=== PATIENT | male | born 1955 ===

== ENCOUNTER 2022-11-01 06:01 | Inpatient (IN) ==
[2022-10-29 12:25] LABS: Basophils % 0.1 % (0.0-0.8); Eosinophils # 0.1 10*3/uL (0.0-0.87); Eosinophils % 0.7 % (0.00-10.9); Hematocrit 48.6 VOL% (42.0-52.0); Hemoglobin 16.6 GM/DL (14.0-18.0); Immature Granulocytes % 0.5 %; Immature Granulocytes Absolute 0.04 #; Lymphocytes # 0.5 10*3/uL (1.4-4.0); Lymphocytes % 6.1 % (21.2-54.2); Mean Corpuscular HGB Conc 34.2 GM/DL (32-36); Mean Corpuscular Volume 97.6 FL (87-102); Mean Platelet Volume 10.7 FL (9.6-12.0); Monocytes # 0.3 10*3/uL (0.11-0.8); Monocytes % 3.5 % (1.7-12.7); Neutrophils % 89.1 % (38.7-73.9); Platelet Count 157 T/CUMM (130-400); Red Blood Count 4.98 MC/CUMM (3.8-5.5); White Blood Count 8.7 T/CUMM (4-12)
[2022-10-29 12:56] LABS: Albumin 3.9 G/DL (3.4-5.0); Bilirubin,Total 0.7 MG/DL (0.20-1.00); Calcium 9.7 MG/DL (8.5-10.1); Osmolality,Calculated 274.1 MOS/KG (273-304); Potassium 4.8 MMOL/L (3.5-5.1); Total Protein 7.5 G/DL (6.4-8.2)
[~2022-11-01 06:01] MED LIST: ceFAZolin 1,000 MG VIAL ONE
[2022-11-01] MEDS ORDERED: HEPARIN/NACL 0.9% 2 UNITS/ML 1,000 UNIT/500 ML BAG IV ONE (06:35)
[2022-11-01] MEDS ORDERED: LIDOCAINE 2% 5 ML VIAL ONE ×2 (06:36→10:43)
[2022-11-01] MEDS ORDERED: FAMOTIDINE 20 MG TABLET PO ONE (06:37)
[2022-11-01] MEDS ORDERED: DIAZEPAM 5 MG TABLET PO ONE (06:37)
[2022-11-01] MEDS ORDERED: LIDOCAINE 2% TOP JELLY 5 ML TUBE TOP ONE (06:57)
[2022-11-01] MEDS ORDERED: LIDOCAINE 1%/EPI INJ 20 ML VIAL ONE (06:59)
[2022-11-01] MEDS ORDERED: PHENYLEPHRINE 1 MG/10 ML SYRINGE IV ONE (06:59)
[2022-11-01] MEDS ORDERED: HEPARIN/NACL 0.9% 2 UNITS/ML 6,000 UNIT/3,000 ML BAG IV ONE (07:23)
[2022-11-01] MEDS ORDERED: SUGAMMADEX 200 MG/2 ML VIAL IV ONE (10:11)
[2022-11-01] MEDS ORDERED: ONDANSETRON 4 MG/2 ML VIAL IV PRN (10:21)
[2022-11-01] MEDS ORDERED: HYDROmorphone 1 MG/1 ML SYRINGE IV PRN (10:21)
[2022-11-01] MEDS ORDERED: GLUCAGON 1 MG VIAL IM PRN (10:27)
[2022-11-01] MEDS ORDERED: propofoL 200 MG/20 ML VIAL IV ONE (10:43)
[2022-11-01] MEDS ORDERED: fentaNYL 100 MCG/2 ML VIAL ONE (10:44)
[2022-11-01] MEDS ORDERED: MIDAZOLAM 2 MG/2 ML VIAL ONE (10:44)
[2022-11-01] MEDS ORDERED: SEVOFLURANE 1 UNIT/15 MINUTE INH ONE (10:44)
[2022-11-01] MEDS ORDERED: ROCURONIUM 50 MG/5 ML VIAL IV ONE (10:44)
[2022-11-01] MEDS ORDERED: PHENYLEPHRINE DRIP 20 MG/250 ML PREMIX IV ONE (10:44)
[2022-11-01] MEDS ORDERED: ONDANSETRON 4 MG/2 ML VIAL ONE (10:44)
[2022-11-01] MEDS ORDERED: ePHEDrine 50 MG/ML VIAL ONE (10:45)
[2022-11-01] MEDS ORDERED: DEXTROSE 50% 25 GM/50 ML SYRINGE IV PRN (10:52)
[2022-11-01] MEDS: LACTATED RINGERS 1,000 ML IV SCH ×2 (11:56→18:24)
[2022-11-01] MEDS: INSULIN REGULAR 100 UNIT/ML SUBCUT SCH ×3 (11:57→21:20)
[2022-11-01] MEDS: ROSUVASTATIN 20 MG TABLET PO SCH (21:17)
[2022-11-02] MEDS: LACTATED RINGERS 1,000 ML IV SCH (02:26)
[2022-11-02 05:34] LABS: Basophils % 0.3 % (0.0-0.8); Eosinophils # 0.2 10*3/uL (0.0-0.87); Eosinophils % 1.9 % (0.00-10.9); Hematocrit 34.5 VOL% (42.0-52.0); Hemoglobin 12.1 GM/DL (14.0-18.0); Immature Granulocytes % 0.3 %; Immature Granulocytes Absolute 0.03 #; Lymphocytes # 1.4 10*3/uL (1.4-4.0); Lymphocytes % 16.6 % (21.2-54.2); Mean Corpuscular HGB Conc 35.1 GM/DL (32-36); Mean Corpuscular Volume 95.6 FL (87-102); Mean Platelet Volume 10.5 FL (9.6-12.0); Monocytes # 0.5 10*3/uL (0.11-0.8); Monocytes % 6.2 % (1.7-12.7); Neutrophils % 74.7 % (38.7-73.9); Platelet Count 96 T/CUMM (130-400); Red Blood Count 3.61 MC/CUMM (3.8-5.5); Red Cell Distribution Width 11.9 % (9.3-17.3); White Blood Count 8.6 T/CUMM (4-12)
[2022-11-02 05:48] LABS: Calcium 8.5 MG/DL (8.5-10.1); Osmolality,Calculated 271.1 MOS/KG (273-304); Potassium 4.1 MMOL/L (3.5-5.1)
[2022-11-02 06:03] LABS: Platelet Estimate Decreased
[2022-11-02] MEDS: INSULIN REGULAR 100 UNIT/ML SUBCUT SCH ×4 (08:02→21:45)
[2022-11-02] MEDS ORDERED: ACETAMINOPHEN 325 MG TABLET PO ONE (08:49)
[2022-11-02] MEDS: DAPAGLIFLOZIN 10 MG TABLET PO SCH (08:53)
[2022-11-02] MEDS: METOPROLOL SUCCINATE XL 25 MG TABLET PO SCH (08:53)
[2022-11-02] MEDS: buPROPion XL 150 MG TABLET PO SCH (08:53)
[2022-11-02] MEDS: ASPIRIN EC 81 MG TABLET PO SCH (08:53)
[2022-11-02] MEDS ORDERED: FUROSEMIDE 20 MG/2 ML VIAL IV ONE (09:15)
[2022-11-02 13:17] LABS: Bacteria,Urine Occasional /HPF (Few); Bilirubin,Urine Negative (Negative); Blood, Urine Large mg/dL (Negative); Glucose,Urine (UA) >1000 mg/dL (Negative); Ketones,Urine Negative (Negative); Mucus,Urine Occasional /LPF (Occasional); Nitrite,Urine Negative (Negative); Protein,Urine 30 mg/dL (Negative); RBC,Urine 408 /HPF (0-4); Urine Appearance Slightly Hazy (Clear); Urine Color Yellow (Yellow); Urine Specific Gravity 1.015 (1.001-1.035); Urine Urobilinogen 0.2 eU/dL (<2.0); Urine pH 5.5 (4.5-8.0)
[2022-11-02] MEDS: ACETAMINOPHEN 325 MG TABLET PO PRN (16:29)
[2022-11-02] MEDS ORDERED: TICAGRELOR 90 MG TABLET PO SCH (21:00)
[2022-11-02] MEDS: CIPROFLOXACIN 500 MG TABLET PO SCH (21:15)
[2022-11-02] MEDS: ROSUVASTATIN 20 MG TABLET PO SCH (21:15)
[2022-11-03 05:35] LABS: Basophils % 0.2 % (0.0-0.8); Eosinophils % 0.1 % (0.00-10.9); Hematocrit 37.1 VOL% (42.0-52.0); Immature Granulocytes % 0.8 %; Immature Granulocytes Absolute 0.13 #; Lymphocytes # 1.4 10*3/uL (1.4-4.0); Lymphocytes % 8.6 % (21.2-54.2); Mean Corpuscular Volume 96.1 FL (87-102); Mean Platelet Volume 11.3 FL (9.6-12.0); Monocytes # 0.9 10*3/uL (0.11-0.8); Monocytes % 5.3 % (1.7-12.7); Platelet Count 75 T/CUMM (130-400); Red Blood Count 3.86 MC/CUMM (3.8-5.5); Red Cell Distribution Width 12.1 % (9.3-17.3); White Blood Count 16.4 T/CUMM (4-12)
[2022-11-03 05:45] LABS: Calcium 9.2 MG/DL (8.5-10.1); Osmolality,Calculated 271.1 MOS/KG (273-304); Potassium 4.1 MMOL/L (3.5-5.1)
[2022-11-03 06:59] LABS: Platelet Estimate Decreased
[2022-11-03] MEDS: INSULIN REGULAR 100 UNIT/ML SUBCUT SCH ×3 (07:06→17:20)
[2022-11-03] MEDS: ACETAMINOPHEN 325 MG TABLET PO PRN (07:25)
[2022-11-03] MEDS ORDERED: CLOPIDOGREL 75 MG TABLET PO SCH (09:00)
[2022-11-03] MEDS: CIPROFLOXACIN 500 MG TABLET PO SCH ×2 (09:05→17:46)
[2022-11-03] MEDS: METOPROLOL SUCCINATE XL 25 MG TABLET PO SCH (09:05)
[2022-11-03] MEDS: ASPIRIN EC 81 MG TABLET PO SCH (09:05)
[2022-11-03] MEDS: DAPAGLIFLOZIN 10 MG TABLET PO SCH (09:05)
[2022-11-03] MEDS: buPROPion XL 150 MG TABLET PO SCH (09:05)
[2022-11-03 16:45] VITALS: BP 101/67
== END 2022-11-03 18:27 | disposition home or self-care (01) | DRG 269 ==
LOC: N.SDSINP 06:01 → N.ICU 11:36 → N.3E 14:13
PROVIDERS: ADMIT Surgery; ATTEND Radiology Diagnostic Radiology
PROC: IRERAAA (2022-11-01 06:35)